=== PATIENT | female | born 1980 ===

== ENCOUNTER → 2016-11-11 | Outpatient (CLI) | payer MEDICAID ==
[2016-11-11 09:57] LABS: Basophils # (auto) 0 uL; Basophils % (auto) 0.7 % (0.0-2.0); Eosinophils # (auto) 0.2 uL; Eosinophils % (auto) 3.3 % (0.0-7.0); Hematocrit 36.3 % (36.0-46.0); Hemoglobin 12.3 g/dL (12.2-16.2); Lymphocytes # (auto) 1.1 uL; Mean Corpuscular Hemoglobin 32.8 pg (28.0-32.0); Mean Corpuscular Volume 96.6 fL (80.0-100.0); Mean Platelet Volume 7.8 fL (6.9-10.8); Monocytes # (auto) 0.5 uL; Monocytes % (auto) 7.1 % (0.0-12.0); Neutrophils % (auto) 72.9 % (37.0-80.0); Nucleated Red Blood Cells % 0.2 %; Platelet Count (auto) 177 10^3/uL (140-450); Red Cell Distribution Width 13.3 % (11.8-14.3); White Blood Cell 6.9 10^3/uL (4.4-10.8)
== END | disposition home or self-care (01) ==
LOC: LAB 09:37
PROVIDERS: ATTEND Specialist
DX: Z34.80 Encounter for supervision of other normal pregnancy, unspecified trimester (principal)
CPT/HCPCS: 36415; 85025

== ENCOUNTER 2016-11-18 09:45 | Inpatient (IN) | payer MEDICAID ==
[~2016-11-18] VITALS: Ht 149.9 cm; Wt 88.5 kg
[2016-11-18 12:21] LABS: Basophils # (auto) 0 uL; Basophils % (auto) 0.6 % (0.0-2.0); Eosinophils # (auto) 0.2 uL; Eosinophils % (auto) 2.9 % (0.0-7.0); Hematocrit 38.4 % (36.0-46.0); Hemoglobin 13.2 g/dL (12.2-16.2); Lymphocytes # (auto) 0.9 uL; Lymphocytes % (auto) 11.6 % (10.0-50.0); Mean Corpuscular Hemoglobin 33.1 pg (28.0-32.0); Mean Corpuscular Hgb Conc. 34.3 g/dL (32.0-36.0); Mean Corpuscular Volume 96.4 fL (80.0-100.0); Mean Platelet Volume 8.3 fL (6.9-10.8); Monocytes # (auto) 0.5 uL; Monocytes % (auto) 6.3 % (0.0-12.0); Neutrophils # (auto) 5.8 uL; Neutrophils % (auto) 78.6 % (37.0-80.0); Nucleated Red Blood Cells % 0.6 %; Platelet Count (auto) 180 10^3/uL (140-450); Red Cell Distribution Width 13.3 % (11.8-14.3); White Blood Cell 7.4 10^3/uL (4.4-10.8)
[2016-11-18 12:38] LABS: INR 0.84 (0.9-1.15); Partial Thromboplastin Time 27.4 sec (22.64-33.71); Prothrombin Time 9.1 sec (9.37-12.3)
[2016-11-18 12:40] LABS: Albumin 2.8 g/dL (3.4-5.0); BUN/Creatinine Ratio 17.9; Bilirubin, Total 0.3 mg/dL (0.2-1.0); Calcium 8.8 mg/dL (8.5-10.1); Potassium 3.7 mmol/L (3.5-5.1); Total Protein 6.5 g/dL (6.4-8.2); Uric Acid 5.5 mg/dL (2.6-6.0)
[2016-11-18] MEDS ORDERED: MAGNESIUM SULFATE 40MG/ML 1,000 ML IV SCH (12:43)
[2016-11-18] MEDS ORDERED: hydrALAZINE HCL 20 MG/ML VL IV PRN ×2 (12:45→17:00)
[2016-11-18] MEDS ORDERED: BETAMETHASONE ACET (6MG/ML) 5ML VIAL IM ONE (12:45)
[2016-11-18 12:47] LABS: Urine Bilirubin Negative (Negative); Urine Blood TRACE /uL (Negative); Urine Color Yellow (Yellow); Urine Glucose Normal (Normal); Urine Ketone Negative (Negative); Urine Mucus FEW (None Seen); Urine Nitrite Negative (Negative); Urine RBC 2 /hpf (0 - 4); Urine Squamous Epithelial Cell MOD /hpf (<5); Urine Urobilinogen Normal (Negative); Urine pH 6.5 (5.0-8.0)
[2016-11-18] MEDS: LACTATED RINGER'S 1,000 ML IV SCH (14:25)
[2016-11-18] MEDS ORDERED: CEFTRIAXONE SODIUM 2 GM in D5W 5% 50 ML IV ONE (14:45)
[2016-11-18] MEDS ORDERED: TERBUTALINE SULFATE 1 MG/ML 1ML VIAL SC ONE ×2 (17:55→18:00)
[2016-11-18] MEDS ORDERED: LABETALOL HCL 200 MG TAB PO ONE (18:15)
[2016-11-18] MEDS ORDERED: LABETALOL HCL 200 MG TAB PO SCH (22:00)
[2016-11-19] VITALS (7 sets, daily range): BP systolic 127–149; BP diastolic 67–91
[2016-11-19] MEDS: LACTATED RINGER'S 1,000 ML IV SCH (02:03)
[2016-11-19] MEDS ORDERED: BETAMETHASONE ACET (6MG/ML) 5ML VIAL IM ONE (05:45)
[2016-11-19] MEDS ORDERED: LABETALOL HCL 200 MG TAB PO SCH ×2 (06:00)
[2016-11-19] MEDS ORDERED: PREN-96 PO (07:28)
[2016-11-19 07:32] LABS: Basophils # (auto) 0 uL; Basophils % (auto) 0.1 % (0.0-2.0); Eosinophils # (auto) 0 uL; Hematocrit 38.2 % (36.0-46.0); Hemoglobin 13.1 g/dL (12.2-16.2); Lymphocytes # (auto) 0.7 uL; Lymphocytes % (auto) 6.1 % (10.0-50.0); Mean Corpuscular Hemoglobin 33.6 pg (28.0-32.0); Mean Corpuscular Hgb Conc. 34.3 g/dL (32.0-36.0); Mean Corpuscular Volume 98.1 fL (80.0-100.0); Mean Platelet Volume 8.2 fL (6.9-10.8); Monocytes # (auto) 0.5 uL; Monocytes % (auto) 4.9 % (0.0-12.0); Neutrophils # (auto) 9.6 uL; Neutrophils % (auto) 88.9 % (37.0-80.0); Nucleated Red Blood Cells % 0.2 %; Platelet Count (auto) 197 10^3/uL (140-450); Red Cell Distribution Width 14.1 % (11.8-14.3); White Blood Cell 10.8 10^3/uL (4.4-10.8)
[2016-11-19 07:42] LABS: Albumin 2.9 g/dL (3.4-5.0); BUN/Creatinine Ratio 19.4; Bilirubin, Total 0.5 mg/dL (0.2-1.0); Calcium 7.6 mg/dL (8.5-10.1); Potassium 3.6 mmol/L (3.5-5.1); Total Protein 6.6 g/dL (6.4-8.2); Uric Acid 6.9 mg/dL (2.6-6.0)
[2016-11-19 07:44] LABS: INR 0.81 (0.9-1.15); Prothrombin Time 8.8 sec (9.37-12.3)
[2016-11-19] MEDS ORDERED: ePHEDrine SULFATE 50 MG/ML AMP ONE (14:18)
[2016-11-19] MEDS ORDERED: MIDAZOLAM HCL 1MG/1ML-2 ML VIAL ONE (14:18)
[2016-11-19] MEDS ORDERED: MORPHINE SULF(PF) 0.5MG/ML 10ML VIAL ONE (14:18)
[2016-11-19] MEDS ORDERED: ceFAZolin 1GM VL ONE (14:18)
[2016-11-19] MEDS ORDERED: fentaNYL CITRATE 100 MCG/2 ML VL ONE (14:18)
[2016-11-19] MEDS ORDERED: OXYTOCIN 10 UNIT/ML 10ML VIAL ONE (14:18)
[2016-11-19] MEDS ORDERED: SODIUM CHLORIDE LOCK 20 ML ONE (14:18)
[2016-11-19] MEDS ORDERED: TETRACAINE 1% INJ 2 ML VIAL IJ ONE (14:26)
[2016-11-19] MEDS ORDERED: LACTATED RINGER'S 1,000 ML IV SCH ×2 (16:02→17:45)
[2016-11-19] MEDS ORDERED: HYDROmorphone HCL 2 MG/ML VL IV PRN ×2 (16:15→16:30)
[2016-11-19] MEDS ORDERED: METOCLOPRAMIDE HCL 5MG/ml INJ 2ml VIAL IV ONE (16:30)
[2016-11-19] MEDS ORDERED: NALOXONE HCL 0.4 MG/ML VIAL IV PRN (16:30)
[2016-11-19] MEDS ORDERED: diphenhdrAMINE HCL 50 MG/1 ML VL IV PRN (16:30)
[2016-11-19] MEDS ORDERED: KETOROLAC TROMETH 30 MG/ML 1ML VIAL IV ONE (16:30)
[2016-11-19] MEDS: MAGNESIUM SULFATE 40MG/ML 1,000 ML IV SCH (17:30)
[2016-11-19] MEDS: LABETALOL HCL 200 MG TAB PO SCH (18:58)
[2016-11-19] MEDS: cefTRIAXone 1GM/50ML D5W 50 ML IV SCH (18:59)
[2016-11-20] VITALS (10 sets, daily range): BP systolic 112–153; BP diastolic 57–87
[2016-11-20 06:49] LABS: Basophils # (auto) 0 uL; Eosinophils # (auto) 0 uL; Lymphocytes # (auto) 0.7 uL; Monocytes # (auto) 0.7 uL; Neutrophils # (auto) 10.7 uL; White Blood Cell 12.1 10^3/uL (4.4-10.8)
[2016-11-20 06:55] LABS: Basophils % (auto) 0.2 % (0.0-2.0); Hematocrit 32.9 % (36.0-46.0); Hemoglobin 11.2 g/dL (12.2-16.2); Lymphocytes % (auto) 5.5 % (10.0-50.0); Mean Corpuscular Hemoglobin 33.6 pg (28.0-32.0); Mean Corpuscular Hgb Conc. 34.2 g/dL (32.0-36.0); Mean Corpuscular Volume 98.4 fL (80.0-100.0); Mean Platelet Volume 8.2 fL (6.9-10.8); Neutrophils % (auto) 88.3 % (37.0-80.0); Platelet Count (auto) 182 10^3/uL (140-450); Red Cell Distribution Width 13.9 % (11.8-14.3)
[2016-11-20 06:59] LABS: Potassium 3.9 mmol/L (3.5-5.1)
[2016-11-20 07:02] LABS: Albumin 2.4 g/dL (3.4-5.0); BUN/Creatinine Ratio 22.6
[2016-11-20 07:05] LABS: Bilirubin, Total 0.2 mg/dL (0.2-1.0); Total Protein 5.3 g/dL (6.4-8.2)
[2016-11-20] MEDS: LABETALOL HCL 200 MG TAB PO SCH ×2 (08:00→17:43)
[2016-11-20] MEDS: MAGNESIUM SULFATE 40MG/ML 1,000 ML IV SCH (13:28)
[2016-11-20] MEDS ORDERED: BISACODYL 10 MG RECT SUPP PR PRN (16:30)
[2016-11-20] MEDS ORDERED: DOCUSATE CALCIUM 240 MG CAP PO ONE (16:45)
[2016-11-20] MEDS: HYDROcodone-ACET 5/325MG TAB PO PRN (16:52)
[2016-11-20] MEDS: SIMETHICONE 80 MG CHEWABLE TABLET PO SCH ×2 (17:42→22:05)
[2016-11-20] MEDS: IBUPROFEN 800 MG TAB PO PRN (19:12)
[2016-11-20] MEDS: cefTRIAXone 1GM/50ML D5W 50 ML IV SCH (19:12)
[2016-11-20] MEDS: DOCUSATE SOD 100 MG CAP PO SCH (22:03)
[2016-11-20] MEDS: FERROUS SULFATE 325 MG TAB PO SCH (22:05)
[2016-11-21] VITALS (7 sets, daily range): BP systolic 135–159; BP diastolic 78–96
[2016-11-21] MEDS: HYDROcodone-ACET 5/325MG TAB PO PRN ×2 (00:35→15:52)
[2016-11-21] MEDS: IBUPROFEN 800 MG TAB PO PRN ×2 (05:48→18:50)
[2016-11-21] MEDS: SIMETHICONE 80 MG CHEWABLE TABLET PO SCH ×4 (05:48→23:54)
[2016-11-21] MEDS: LABETALOL HCL 200 MG TAB PO SCH ×2 (05:48→17:45)
[2016-11-21] MEDS: MAGNESIUM SULFATE 40MG/ML 1,000 ML IV SCH (09:28)
[2016-11-21] MEDS: DOCUSATE SOD 100 MG CAP PO SCH ×2 (10:00→21:46)
[2016-11-21] MEDS: FERROUS SULFATE 325 MG TAB PO SCH ×2 (10:00→21:46)
[2016-11-21] MEDS: DOCUSATE CALCIUM 240 MG CAP PO SCH (10:00)
[2016-11-22 03:10] VITALS: BP 155/88
[2016-11-22] MEDS: HYDROcodone-ACET 5/325MG TAB PO PRN (05:09)
[2016-11-22] MEDS: LABETALOL HCL 200 MG TAB PO SCH (06:40)
[2016-11-22] MEDS: SIMETHICONE 80 MG CHEWABLE TABLET PO SCH (06:40)
[2016-11-22 08:09] VITALS: BP 160/91
[2016-11-22] MEDS ORDERED: ACETAMINOPHEN 325 MG TAB PO ONE ×2 (10:16→10:30)
[2016-11-22] MEDS: FERROUS SULFATE 325 MG TAB PO SCH (10:24)
[2016-11-22] MEDS: DOCUSATE SOD 100 MG CAP PO SCH (10:24)
[2016-11-22] MEDS: DOCUSATE CALCIUM 240 MG CAP PO SCH (10:24)
== END 2016-11-22 11:15 | disposition home or self-care (01) | DRG 540 ==
LOC: OBSVTOIN 09:45 → LDRP 09:45
PROVIDERS: ADMIT Obstetrics & Gynecology; ATTEND Obstetrics & Gynecology
PROC: 10D00Z1 Extraction of Products of Conception, Low, Open Approach (ICD-10-PCS; principal; 2016-11-18)
PROC: 0UL70CZ Occlusion of Bilateral Fallopian Tubes with Extraluminal Device, Open Approach (ICD-10-PCS; 2016-11-18)
DX: O14.14 Severe pre-eclampsia complicating childbirth (principal); O75.3 Other infection during labor; O36.5930 Maternal care for other known or suspected poor fetal growth, third trimester, not applicable or unspecified; O69.81X0 Labor and delivery complicated by cord around neck, without compression, not applicable or unspecified; N39.0 Urinary tract infection, site not specified; O60.14X0 Preterm labor third trimester with preterm delivery third trimester, not applicable or unspecified; O34.211 Maternal care for low transverse scar from previous cesarean delivery; Z30.2 Encounter for sterilization; Z37.0 Single live birth; Z3A.36 36 weeks gestation of pregnancy
CPT/HCPCS: 36415; 59025; 76805; 76818; 80053; 81001; 81002; 83735; 84550; 85025; 85362; 85379; 85610; 85730; 86850; 86900; 86901; 94762; 96361; 96365; 96366; 96372; J0690; J0696; J2250; J2590; J7060